=== PATIENT | female | born 1945 | race Caucasian/White ===

== ENCOUNTER 2024-08-31 11:24 | Inpatient (IN) | payer MEDICARE ==
[~2024-08-31] VITALS: Ht 149.9 cm; Wt 54.4 kg
[2024-08-31 14:26] VITALS: BP 136/70; TEMP 98
[2024-08-31 15:29] VITALS: BP 136/70; TEMP 98
[2024-09-02 12:00] VITALS: BP 157/63; TEMP 98; O2SAT 95
[2024-09-02] MEDS ORDERED: TRAMADOL HCL 50 MG TABLET PO PRN (12:30)
[2024-09-02] MEDS ORDERED: DEXTROSE 50% 50 ML DISP.SYRIN IV ONE (12:30)
[2024-09-02] MEDS ORDERED: MAGNESIUM HYDROXIDE 30 ML LIQUID UDC PO PRN (12:30)
[2024-09-02] MEDS ORDERED: INSULIN REGULAR, HUMAN 1000 UNIT/10 ML VIAL SQ PRN (12:30)
[2024-09-02] MEDS ORDERED: ACETAMINOPHEN 325 MG TABLET PO PRN (12:30)
[2024-09-02] MEDS ORDERED: REMEDY ESSENTIAL ZINC PASTE 113 GM TOP PRN (12:30)
[2024-09-02] MEDS ORDERED: MAG HYDROX/AL HYDROX/SIMETH 30 ML LIQUID UDC PO PRN (12:30)
[2024-09-02] MEDS ORDERED: IV NORMAL SALINE 1000 ML BAG IV ONE (12:30)
[2024-09-02] MEDS ORDERED: LOSA25TA27 PO (13:07)
[2024-09-02] MEDS ORDERED: ASPI-1420 PO (13:08)
[2024-09-02] MEDS ORDERED: CARV6.252 PO (13:08)
[2024-09-02] MEDS ORDERED: EVOL140P3 SQ (13:09)
[2024-09-02] MEDS ORDERED: EMPA25TA PO (13:10)
[2024-09-02] MEDS ORDERED: ROSU10TA2 PO (13:11)
[2024-09-02] MEDS ORDERED: FENO145T PO (13:13)
[2024-09-02] MEDS ORDERED: BLOO-360 IN (13:15)
[2024-09-02] MEDS ORDERED: DEXL60CA3 PO (13:20)
[2024-09-02] MEDS ORDERED: TRAM50TA2 PO (13:22)
[2024-09-02] MEDS ORDERED: AMLO-358 PO (13:24)
[2024-09-02] MEDS ORDERED: GLIP1TAB5 PO (13:27)
[2024-09-02] MEDS ORDERED: ACET325T53 PO (13:28)
[2024-09-02] MEDS ORDERED: CLON0.1T PO (13:29)
[2024-09-02] MEDS ORDERED: MECL-159 PO (13:32)
[2024-09-02] MEDS ORDERED: ROMO210S SQ (13:33)
[2024-09-02] MEDS ORDERED: PANT40TA2 PO (14:10)
[2024-09-02] MEDS ORDERED: HYDR-3980 PO (14:15)
[2024-09-02] MEDS ORDERED: INSU100V28 SQ (14:16)
[2024-09-02] MEDS ORDERED: MAG-55 PO (14:17)
[2024-09-02] MEDS ORDERED: MAGN400O6 PO (14:18)
[2024-09-02] MEDS ORDERED: NORM100I4 IV (14:19)
[2024-09-02] MEDS ORDERED: ONDA4TAB5 PO (14:20)
[2024-09-02] MEDS ORDERED: DIME118C3 TP (14:21)
[2024-09-02] MEDS ORDERED: DEXTROSE 50% 50 ML DISP.SYRIN IV PRN (14:45)
[2024-09-02] MEDS ORDERED: ONDANSETRON HCL 4 MG TABLET PO PRN (14:45)
[2024-09-02] MEDS: ACETAMINOPHEN 325 MG TABLET PO PRN (16:03)
[2024-09-02 16:13] VITALS: BP 159/69; TEMP 98.2; O2SAT 96
[2024-09-02] MEDS ORDERED: BLOOD SUGAR DIAGNOSTIC 1 EACH STRIP VI SCH ×2 (16:30)
[2024-09-02] MEDS: BLOOD SUGAR DIAGNOSTIC 1 EACH STRIP VI SCH (16:43)
[2024-09-02] MEDS: INSULIN REGULAR, HUMAN 1000 UNIT/10 ML VIAL SQ PRN (17:28)
[2024-09-02 21:42] VITALS: BP 170/62; TEMP 98.4; O2SAT 93
[2024-09-02] MEDS: CLONIDINE HCL 0.1 MG TABLET PO PRN (22:55)
[2024-09-03] MEDS ORDERED: PANTOPRAZOLE SODIUM 40 MG TABLET.DR PO SCH (07:00)
[2024-09-03 07:13] VITALS: BP 160/55; TEMP 98; O2SAT 94
[2024-09-03 08:00] VITALS: BP 139/64; TEMP 97.6; O2SAT 95
[2024-09-03] MEDS: ASPIRIN EC 81 MG TABLET.DR PO SCH (08:30)
[2024-09-03] MEDS: PANTOPRAZOLE SODIUM 40 MG TABLET.DR PO SCH (08:30)
[2024-09-03] MEDS ORDERED: CARVEDILOL 6.25 MG TABLET PO SCH (09:00)
[2024-09-03] MEDS ORDERED: FENOFIBRATE NANOCRYSTALLIZED 145 MG TABLET PO SCH (09:00)
[2024-09-03] MEDS ORDERED: ASPIRIN 81 MG TAB.CHEW PO SCH (09:00)
[2024-09-03] MEDS ORDERED: ASPIRIN EC 81 MG TABLET.DR PO SCH (09:00)
[2024-09-03 15:48] VITALS: BP 158/69; TEMP 97.2; O2SAT 97
[2024-09-03 21:26] VITALS: BP 180/76; TEMP 98.3; O2SAT 97
[2024-09-04 07:44] VITALS: BP 144/67; TEMP 98.1; O2SAT 95
[2024-09-04 09:30] VITALS: BP 160/67; TEMP 97.8; O2SAT 95
[2024-09-04] MEDS: HYDROCODONE/APAP 5-325MG TABLET PO PRN (11:39)
[2024-09-04 16:30] VITALS: BP 163/77; TEMP 98.4; O2SAT 95
[2024-09-04 19:33] VITALS: BP 148/65; TEMP 98; O2SAT 96
[2024-09-05 04:11] VITALS: BP 161/76; TEMP 98.5; O2SAT 95
[2024-09-05 08:00] VITALS: BP 175/69; TEMP 97.9; O2SAT 94
[2024-09-05 08:25] LABS: BASOPHILS # (AUTO) 0.1 K/UL (0.0-0.2); BASOPHILS % (AUTO) 0.7 % (0.0-2.0); EOSINOPHILS # (AUTO) 0.2 K/uL (0.0-0.7); EOSINOPHILS % (AUTO) 2.4 % (0.0-7.0); HEMATOCRIT 33.8 % (31.2-41.9); HEMOGLOBIN 11.5 g/dL (10.9-14.3); LYMPHOCYTES # (AUTO) 1.2 K/uL (0.8-4.8); LYMPHOCYTES % (AUTO) 14.5 % (20.5-51.5); MEAN CORPUSCULAR HEMOGLOBIN 29.9 uug (24.7-32.8); MEAN CORPUSCULAR HGB CONC 34 g/dL (32.3-35.6); MEAN CORPUSCULAR VOLUME 87.5 fL (75.5-95.3); MONOCYTES # (AUTO) 0.6 K/uL (0.1-1.30); MONOCYTES % (AUTO) 7.5 % (0.0-11.0); NEUTROPHILS # (AUTO) 6.3 K/uL (1.8-8.9); NEUTROPHILS % (AUTO) 74.9 % (38.5-71.5); PLATELET COUNT (AUTO) 233 K/uL (179-408); RED BLOOD CELL COUNT(AUTO) 3.86 MIL/uL (3.63-4.92); RED CELL DISTRIBUTION WIDTH 14.3 % (12.3-17.7); WHITE BLOOD COUNT (AUTO) 8.5 K/uL (3.8-11.8)
[2024-09-05 08:34] LABS: DIFFERENTIAL COMMENT 1
[2024-09-05 08:56] LABS: THYROID STIMULATING HORMONE 4.209 mIU/mL (0.358-3.740)
[2024-09-05 09:39] LABS: ALANINE AMINOTRANSFERASE 46 U/L (14-59); ALBUMIN 2.8 g/dL (3.4-5.0); ALKALINE PHOSPHATASE 59 U/L (50-136); ASPARTATE AMINOTRANSFERASE 33 U/L (15-37); BILIRUBIN,TOTAL 0.4 mg/dL (0.2-1.0); CALCIUM 8.6 mg/dL (8.5-10.1); CARBON DIOXIDE 27 mmol/L (21-32); CHLORIDE 102 mmol/L (98-107); CHOLESTEROL 188 mg/dL (<200); CREATININE 0.9 mg/dL (0.6-1.3); GLUCOSE 154 mg/dL (74-106); HDL CHOLESTEROL 28 mg/dL (40-60); MAGNESIUM 1.9 mg/dL (1.8-2.4); NT-PRO BNP 325 pg/mL (0-125); PHOSPHOROUS 2.7 mg/dL (2.5-4.9); POTASSIUM 3.6 mmol/L (3.5-5.1); SODIUM SERUM 140 mmol/L (136-145); TOTAL PROTEIN, SERUM 7.3 g/dL (6.4-8.2); TRIGLYCERIDES 283 MG/DL (30-150); UREA NITROGEN, BLOOD 21 mg/dL (7-18)
[2024-09-05] MEDS: METHYL SALICYLATE/MENTHOL CREAM 28 GM TUBE TOP SCH (15:59)
[2024-09-05 17:00] VITALS: BP 159/75; TEMP 98; O2SAT 94
[2024-09-05 19:50] VITALS: BP 171/65; TEMP 98.8; O2SAT 97
[2024-09-05] MEDS: ATORVASTATIN 10 MG TABLET PO SCH (21:33)
[2024-09-06 06:31] VITALS: BP 150/74; TEMP 98.5; O2SAT 96
[2024-09-06] MEDS: METFORMIN HCL 500 MG TABLET GT SCH (08:25)
[2024-09-06 18:35] VITALS: BP 173/73; TEMP 98; O2SAT 95
[2024-09-06] MEDS ORDERED: CLONIDINE HCL 0.1 MG TABLET GT PRN (20:30)
[2024-09-06] MEDS: AMLODIPINE 5 MG TABLET GT SCH (20:33)
[2024-09-06] MEDS: HYDROCODONE/APAP 10-325 MG TABLET GT PRN (20:51)
[2024-09-07 05:34] VITALS: BP 144/63; TEMP 97.6; O2SAT 97
[2024-09-07 07:57] VITALS: BP 136/64; TEMP 98.1; O2SAT 92
[2024-09-07 16:12] VITALS: BP 145/60; TEMP 98.1; O2SAT 95
[2024-09-07 19:23] VITALS: BP 144/58; TEMP 98; O2SAT 97
[2024-09-07] MEDS ORDERED: MIRALAX 17 GM POWD.PACK PO PRN (22:00)
[2024-09-08 05:40] VITALS: BP 141/68; TEMP 98; O2SAT 94
[2024-09-08 08:00] VITALS: BP 134/62; TEMP 98.2; O2SAT 96
[2024-09-08] MEDS: AMLODIPINE 5 MG TABLET PO SCH (08:52)
[2024-09-08] MEDS: METFORMIN HCL 500 MG TABLET PO SCH (08:52)
[2024-09-08] MEDS: HYDROCODONE/APAP 10-325 MG TABLET PO PRN (15:06)
[2024-09-08 17:00] VITALS: BP 137/66; TEMP 98.3; O2SAT 97
[2024-09-08] MEDS: DOCUSATE SODIUM 100 MG CAPSULE PO SCH (20:24)
[2024-09-08 20:44] VITALS: BP 154/68; TEMP 98.1; O2SAT 95
[2024-09-09 06:58] VITALS: BP 154/69; TEMP 98.2; O2SAT 95
[2024-09-09 08:00] VITALS: TEMP 97.7
[2024-09-09] MEDS: LIDOCAINE 5% PATCH TD SCH (12:38)
[2024-09-09 16:00] VITALS: TEMP 98
[2024-09-09 20:15] VITALS: BP 160/70; TEMP 97.9; O2SAT 96
[2024-09-09 22:10] VITALS: BP 153/69
[2024-09-09] MEDS: CLONIDINE HCL 0.1 MG TABLET PO PRN (22:10)
[2024-09-09 23:10] VITALS: BP 146/67
[2024-09-10 05:02] VITALS: BP 132/60; TEMP 97.8; O2SAT 96
[2024-09-10 07:56] VITALS: BP 175/88; TEMP 97.4; O2SAT 97
[2024-09-10] MEDS: VALSARTAN 80 MG TABLET PO SCH (09:15)
[2024-09-10 16:18] VITALS: BP 148/70; TEMP 98
[2024-09-10 21:41] VITALS: BP 133/67; TEMP 98.2; O2SAT 95
[2024-09-11 06:06] VITALS: BP 162/64; TEMP 97.7; O2SAT 95
[2024-09-11 08:00] VITALS: TEMP 97.6
[2024-09-11 16:26] VITALS: TEMP 97.9
[2024-09-11 20:04] VITALS: BP 138/58; TEMP 98.1; O2SAT 95
[2024-09-12 07:14] VITALS: BP 147/67; TEMP 98; O2SAT 96
[2024-09-12 08:00] VITALS: BP 152/69; TEMP 97.6; TEMP 97.9; O2SAT 98
[2024-09-12 15:25] LABS: THYROID STIMULATING HORMONE 1.389 mIU/mL (0.358-3.740)
[2024-09-12 16:00] VITALS: BP 151/67; TEMP 97; O2SAT 98
[2024-09-12 20:49] VITALS: BP 146/73; TEMP 97.7; O2SAT 98
[2024-09-13 06:30] VITALS: BP 153/70; TEMP 97.2; O2SAT 97
[2024-09-13 07:56] VITALS: TEMP 98.2
[2024-09-13 08:46] VITALS: BP 130/59
[2024-09-13] MEDS ORDERED: METF-440 PO (10:45)
[2024-09-13] MEDS ORDERED: LIDO30AD10 TD (10:45)
[2024-09-13] MEDS ORDERED: AMLO-212 PO (10:45)
[2024-09-13] MEDS ORDERED: ATOR10TA PO (10:45)
[2024-09-13] MEDS ORDERED: VALS80TA31 PO (10:45)
== END 2024-09-13 11:20 | disposition home health service (06) | DRG 947 ==
PROVIDERS: ADMIT Physical Medicine & Rehabilitation Pain Medicine; ATTEND Physical Medicine & Rehabilitation Pain Medicine
DX: R53.1 Weakness (principal); N17.0 Acute kidney failure with tubular necrosis; M62.82 Rhabdomyolysis; D64.9 Anemia, unspecified; E78.5 Hyperlipidemia, unspecified; E11.9 Type 2 diabetes mellitus without complications; I10 Essential (primary) hypertension; M89.8X9 Other specified disorders of bone, unspecified site; E86.9 Volume depletion, unspecified; Z91.81 History of falling; S00.83XD Contusion of other part of head, subsequent encounter; S39.82XD Other specified injuries of lower back, subsequent encounter; W18.30XD Fall on same level, unspecified, subsequent encounter; E11.65 Type 2 diabetes mellitus with hyperglycemia; K52.9 Noninfective gastroenteritis and colitis, unspecified; M81.0 Age-related osteoporosis without current pathological fracture; Z88.0 Allergy status to penicillin; R26.2 Difficulty in walking, not elsewhere classified; R26.89 Other abnormalities of gait and mobility
CPT/HCPCS: 36415; 83735; 83921; 84100; 84443; 85025; 97535-GO-CO; J1815